=== PATIENT | female | born 1990 | race Caucasian/White ===

== ENCOUNTER → 2016-09-10 15:34 | Observation (INO) ==
--- NOTE | 2016-09-10 15:31 | OB/GYN Progress Note ---
Date of Encounter: 09/10/16 Time of Encounter: 15:29 - Assessment and Plan (1) 39 weeks gestation of Current Visit: Yes Status: Acute (2) False labor Current Visit: Yes Status: Acute SVE 380/-2 x 2 exams. No bleeding noted on exam. Discharge home with precautions. Subjective - Subjective Interval history: 26 year-old presenting at 39w1d with c/o spotting. She reports having some spotting with wiping today. She had an SVE in the office 2 days ago. She also reports some light cramping but no significant pain or contractions. No LOF or heavy VB. Good FM. Objective - Vital Signs Vital Signs: Intake and Output 09/09/16 09/10/16 09/10/16 23:59 07:59 15:59 Other: Weight 93 kg Patient Weight 09/10/16 23:59 Weight 93 kg - Exam FHR: category 1 FHR comments: NST reactive Abdomen: Present: soft, gravid Cervical dilation: 3 Cervix effacement: 80 station: -2 per nursing staff
== END | disposition home or self-care (01) ==
LOC: 1NENULAB
PROVIDERS: ADMIT Student in an Organized Health Care Education/Training Program; ATTEND Student in an Organized Health Care Education/Training Program

== ENCOUNTER 2016-09-10 22:18 | Inpatient (IN) ==
[~2016-09-10 22:18] MED LIST: Famotidine 20 MG/2 ML VIAL IVP PRN; Metoclopramide 10 MG/2 ML VIAL IVP PRN
[2016-09-10 22:55] LABS: Basophils % 0.3 %; Eosinophils % 0.4 %; Hematocrit 40.2 % (35.3-44.9); Hemoglobin 13.9 g/dL (11.5-15.4); Immature Granulocytes % 0.7 % (0-4); Lymphocytes % 18.5 %; Mean Corpuscular HGB Conc 34.6 g/dL (31.6-35.5); Mean Corpuscular Hemoglobin 30.8 pg (28.0-33.3); Mean Corpuscular Volume 89.1 fL (83.0-100.0); Mean Platelet Volume 9.5 fL (9.4-12.4); Monocytes # 0.7 K/mcL (0.0-1.3); Monocytes % 6.6 %; Neutrophils # 8.1 K/mcL (1.6-8.9); Platelet Count 306 K/mcL (140-400); Red Blood Count 4.51 M/mcL (3.82-4.97); Red Cell Distribution Width 12.4 % (11.5-14.5); Segmented Neutrophils % 73.5 %
--- NOTE | 2016-09-10 23:59 | OB/GYN History & Physical ---
Date of Encounter: 09/11/16 Time of Encounter: 23:42 Assessment and Plan (1) Spontaneous rupture of amniotic membranes Current visit: Yes Status: Acute Admit for expectant management. Allow pt to ambulate and sit on ball. Will augment after 6 hours if needed. Epidural when requested. Anticipate . (2) 39 weeks gestation of Current visit: No Status: Acute History of Present Illness Chief complaint: leaking fluid HPI: Ms. Li is a 26 year old female presenting at 39w1d for leaking fluid. She reports a large gush of clear fluid at 2100 this evening. She has been having some mild contractions every 4-6 minutes and some spotting today also. Good FM. No other complaints. This has been uncomplicated. Blood type O positive. Rubella immune. Serologies and GBS negative. Past Med Surg Social Fam HX - Past Medical History Medical history: no medical history, venous stasis Psychiatric history: no psych history - Past Surgical History Surgical History: other - Social History Smoking Status: Never smoker Smokeless Tobacco Status: No Alcohol use: none Drug use: none - Family History Mother Age: 52 Living Status: Still Living Hx Family Cardiac Disorders: Yes (high chol) Obstetrical History - Pregnancies : 1 Medications and Allergies One Tablet 1 tab PO DAILY 09/10/16 [History] Allergies No Known Allergies Allergy (Verified 12/25/15 07:10) Review of System OB All systems PM: reviewed and no additional remarkable complaints except as stated Exam - Vital Signs Vital signs: Initial Vital Signs Pulse Resp BP 83 16 131/78 09/10/16 22:05 09/10/16 22:05 09/10/16 22:05 - Constitutional Constitutional: well developed, well nourished, no acute distress - HEENT HEENT: Normocephaly - Lungs Respiratory exam: CTAB - Cardiovascular Cardiovascular exam: RRR, +S1, +S2 - Abdomen Abdomen: Present: gravid, non tender - Extremities Extremities exam: normal inspection (2+ edema bilaterally), pedal edema - Vulva Vulva: bilateral: normal - Vagina Vagina: Present: normal moisture - Cervix Dilation: 3 Effacement: 80 - Anus/Rectum Anus/Rectum: Present: normal perianal skin Results Result Diagrams: 09/10/16 22:45 All other labs normal. - VTE Reasons for not Prescribing Prophylaxis: Treatment not Indicated - Low risk for VTE
[2016-09-11] MEDS ORDERED: *HR* Nalbuphine 20 MG/ML AMPUL ONE (00:54)
[2016-09-11] MEDS: Ringers Solution, Lactated 1,000 ML IVC SCH ×2 (01:04→02:36)
[2016-09-11] MEDS ORDERED: *HR* Nalbuphine 20 MG/ML AMPUL IVP PRN (01:43)
[2016-09-11] MEDS ORDERED: Ringers Solution, Lactated 500 ML IVC ONE (01:47)
[2016-09-11] MEDS ORDERED: EPHEDrine 50 MG/ML VIAL IVP PRN (01:47)
[2016-09-11] MEDS ORDERED: Epidural Premix (fent/bupiv) 110 ML EP ONE ×3 (01:51→13:37)
[2016-09-11] MEDS ORDERED: Epidural Premix (fent/bupiv) 110 ML EP SCH (02:00)
--- NOTE | 2016-09-11 02:29 | Anesthesia Evaluation PreOp ---
Date of Encounter: 09/11/16 Time of Encounter: 02:28 - Past History Planned Operation: [facility] Cardiac History: Denies any Significant Hx Pulmonary History: Denies Any Significant HX TICKET WORKER History: Denies Any Significant HX Other Medical History: Denies Any Significant HX Anesthesia History: No Prior Anesthetic Complications Alcohol Use: none Drug use: none Medications and Allergies One Tablet 1 tab PO DAILY 09/10/16 [History] Allergies No Known Allergies Allergy (Verified 12/25/15 07:10) - Meds/Allergy Pre-op Review Medications Reviewed: Yes Allergies Reviewed: Yes Beta Blockers on Current Med List: No Anesthesia Results - Labs 09/10/16 22:45 Anesthesia Exam Height: 1.7m Weight: 93kg NPO (# of Hours): 6 Pain Scale: 10 Pain Scale Used: Numeric (1 - 10) - HEENT Pupil (Motor): Pupils equal Mallampati: II Teeth: Normal Oral Opening: Greater than 3 - TICKET WORKER LOC: Oriented TICKET WORKER Motor: Normal RUE, Normal LUE, Normal RLE, Normal LLE, Normal Face TICKET WORKER Sensory: Normal: RUE, LUE, RLE, LLE, Face - Cardiac Rhythm: Regular Murmur: None JVD: No Carotid Bruit: No - Pulmonary Breath Sounds: bilateral Clear Respiratory Effort: Symmetrical Anesthesia Assess/Plan ASA Score: 2 Modified Silvestre Scale for Level of Consciousness: Cooperative, oriented, and tranquil Anesthetic Plan: General (plan b), Regional (plan a) Autologous Blood: Yes Monitoring Plan: Standard Monitors
--- NOTE | 2016-09-11 02:31 | Anesthesia Procedures ---
Date of Encounter: 09/11/16 Time of Encounter: 02:29 Procedures: Anesthesia - Epidural/Spinal Patient ID/Chart reviewed: Yes Patient examined: Yes OB Eval: Gestational age: 39.1 OB Eval: : 1 OB Eval: Hx Para: 0 OB Eval: Dilated at (cm): 5 OB Eval: Contractions: Non-stressed pattern Consent Obtained: Yes Supplemental Oxygen: None/Room Air Site Prep: Aseptic Technique, Sterile prep and drape, Povidone-Iodine 1% Patient position: upright Local Anesthetic: Lidocaine 1% Amount of Local Anesthetic used: 3 Touhy Needle Gauge: 18 Touhy Needle Depth (cm): 8 Catheter Depth at Skin (cm): 15 Test Dose (1.5% Lido + Epi): Volume given (mls): 5 Test Dose Result: Negative Loading Dose: Other: 10mls of epidural pharm bag premix solution Loading Dose Administered: Thru Catheter Infusion Med: 0.125% Bupivacaine w/ 2 mcg/ml Fentanyl Infusion Rate (mls/hr): 16 ([id number]) Catheter Secured in Place: Tegaderm, Tape Interspace Used: L3-L4 Loss of Resistance (NEW): Yes Blood: No CSF: No Paresthesia: No Procedure: pt tolerated procedure well. no complications. vss. fhr stable. 127/75 hr 63 138/79 hr 72 fhr 125
--- NOTE | 2016-09-11 06:00 | OB Labor Progress Note ---
Date of Encounter: 09/11/16 Time of Encounter: 05:58 Labor Progress Note - Subjective Subjective: Pt comfortable with epidural - Cervix Cervix: 8-9cm per RN - Heart Tones Heart Tones: periodic variable decelerations noted, moderate variability - Lead Lead: 4-5 minutes - Interventions Interventions: Pt repositioned multiple times per nursing staff, IV fluid bolusing, oxygen in place - Plan Plan: Continue to monitor. Anticipate .
[2016-09-11] MEDS ORDERED: Ondansetron 4 MG/2 ML VIAL IVP PRN (06:43)
--- NOTE | 2016-09-11 09:35 | OB Labor Progress Note ---
Date of Encounter: 09/11/16 Time of Encounter: 09:31 Labor Progress Note - Subjective Subjective: Pt resting in bed. comfortable with epidural - Cervix Cervix: Ant. lip per RN - Heart Tones Heart Tones: Baseline 140/moderate variability/-accels/variables, late decelerations present at times. Tracing improved when turned to right side. - [place]: 2-4 - Interventions Interventions: Tracing improved with repositioning. - Plan Plan: Continue current management plan Dr. Chang updated and introduced to patient Anticipate
[2016-09-11] MEDS ORDERED: Acetaminophen 325 MG TABLET PO ONE ×2 (10:08→13:53)
[2016-09-11] MEDS ORDERED: Oxytocin 20 units/ LR 1000 mL 20 UNIT/1,000 ML BAG IVC SCH ×2 (13:15→20:30)
--- NOTE | 2016-09-11 14:26 | OB Labor Progress Note ---
Date of Encounter: 09/11/16 Time of Encounter: 12:30 Labor Progress Note - Subjective Subjective: Pt states feeling some rectal pressure. but otherwise comfortable - Cervix Cervix: 9.5/ +1 station - Heart Tones Heart Tones: 135/moderate/+accels/variables and early decels, - [place]: q2-4 - Interventions Interventions: Start pitocin per policy Dr. kenny updated anticipate
--- NOTE | 2016-09-11 18:22 | OB/GYN Procedure Note ---
Delivery - Delivery Provider: Mirian Farah Intrapartum events: meconium, polyhydramnios Delivery induction: none Delivery augmentation: pitocin Delivery monitor: external FHT, external uterine Anesthesia: epidural Estimated Blood Loss: 600 - (s) Infant A Infant Delivery Date: 09/11/16 Infant Delivery Time: 15:06 Presentation: vertex Position: OA Route of delivery: Gender: Male Viability: Viable Pounds: 7 Ounces: 9 Weight Gram: 3.435 kg at 1 minute: 8 at 5 mins: 9 Shoulder Dystocia: not encountered Cord: nuchal cord - Repair Laceration Description: Perineal - 3rd Degree, Vaginal - Complications Delivery complications: meconium - Disposition Mom disposition: stable in LDR disposition: stable in LDR - Comments Comments: Progressed to complete. Directed maternal bearing down efforts to of liveborn boy. Vertex delivered, nuchal x1, infant delivered through cord, shoulders and body easily followed, thick and terminal meconium noted. infant placed on maternal abdomen stimulated to spontaneous cry, APGARS 8/9no shoulder dystocia encountered. Third degree perineal laceration, right vaginal side wall and left side perineal second degree repaired by Dr. Chang. Placenta delivered spontaneously, intact on inspection, pitocin per policy. fundus firm EBL 600. Mother and infant left skin to skin.
[2016-09-11] MEDS ORDERED: Benzocaine/Menthol 56 GM AEROSOL SPRAY TP PRN (20:30)
[2016-09-11] MEDS ORDERED: Acetaminophen 325 MG TABLET PO PRN (20:30)
[2016-09-11] MEDS ORDERED: Lanolin 7 G OINT...G. TP PRN (20:30)
[2016-09-11] MEDS: Ibuprofen 600 MG TABLET PO PRN (21:16)
[2016-09-12] MEDS: Ibuprofen 600 MG TABLET PO PRN ×3 (02:45→16:47)
[2016-09-12 06:03] LABS: Basophils % 0.1 %; Eosinophils % 0.3 %; Hematocrit 23.5 % (35.3-44.9); Immature Granulocytes % 0.7 % (0-4); Lymphocytes # 1.5 K/mcL (0.6-4.6); Lymphocytes % 11.4 %; Mean Corpuscular HGB Conc 34.5 g/dL (31.6-35.5); Mean Corpuscular Hemoglobin 31.6 pg (28.0-33.3); Mean Corpuscular Volume 91.8 fL (83.0-100.0); Mean Platelet Volume 10.2 fL (9.4-12.4); Monocytes # 0.9 K/mcL (0.0-1.3); Monocytes % 6.5 %; Neutrophils # 10.9 K/mcL (1.6-8.9); Platelet Count 189 K/mcL (140-400); Red Blood Count 2.56 M/mcL (3.82-4.97); Red Cell Distribution Width 12.7 % (11.5-14.5)
[2016-09-12 06:07] LABS: Hemoglobin 8.1 g/dL (11.5-15.4)
[2016-09-12] MEDS: Prenatal Vit/FA 1 EACH TABLET PO SCH (08:09)
--- NOTE | 2016-09-12 10:03 | OB/GYN Progress Note ---
Date of Encounter: 09/12/16 Time of Encounter: 10:01 - Assessment and Plan (1) Status post vaginal delivery Current Visit: Yes Status: Acute patient doing very well PPD#1, cont current inpt care, aim for discharge tomorrrow Subjective - Subjective Patient reports: appetite normal, voiding normally, pain well controlled, ambulating normally : doing well, nursing well Objective - Latest Vital Signs Latest vital signs: Vital Signs Temp Pulse Resp BP Pulse Ox 09/12/16 07:30 98.6 F 108 16 130/72 09/12/16 02:40 98.4 F 83 20 103/68 97 09/11/16 22:30 98.6 F 101 20 122/83 98 09/11/16 21:45 99.3 F 105 20 122/81 99 09/11/16 20:30 98.2 F 99 14 114/77 100 Intake and Output 09/11/16 09/12/16 09/12/16 23:59 07:59 15:59 Intake Total 300 / 300 1700 / 1700 360 / 360 Output Total 400 / 400 1700 / 1700 Balance -100 / -100 0 / 0 360 / 360 Intake: Oral 300 / 300 700 / 700 360 / 360 Other 1000 / 1000 Output: Urine 400 / 400 1700 / 1700 Other: Meal Breakfast Percent of Meal Consumed 90% Weight 94 kg 93.9 kg Patient Weight 09/12/16 23:59 Weight 93.9 kg - Exam Lungs: bilateral: normal Chest: Normal S1, Normal S2 Extremities: Present: normal Abdomen: Present: normal appearance Uterus: Present: normal - Labs Labs: Laboratory Results - last 24 hr 09/12/16 05:33 WBC 13.5 H RBC 2.56 L Hgb 8.1 L D Hct 23.5 L MCV 91.8 MCH 31.6 MCHC 34.5 RDW 12.7 Plt Count 189 MPV 10.2 Immature Gran % 0.7 Seg Neutrophils % 81.0 Lymphocytes % 11.4 Monocytes % 6.5 Eosinophils % 0.3 Basophils % 0.1 Neutrophils # 10.9 H Lymphocytes # 1.5 Monocytes # 0.9 Eosinophils # 0.0 Basophils # 0.0
[2016-09-12] MEDS: *HR* HYDROcodone/Acet 5/325 mg TABLET PO PRN ×2 (12:55→23:06)
[2016-09-13] MEDS: Ibuprofen 600 MG TABLET PO PRN ×2 (06:14→13:46)
[2016-09-13] MEDS: *HR* HYDROcodone/Acet 5/325 mg TABLET PO PRN (06:15)
[2016-09-13 08:38] VITALS: BP 102/65
[2016-09-13] MEDS: Prenatal Vit/FA 1 EACH TABLET PO SCH (09:18)
--- NOTE | 2016-09-13 09:18 | Discharge Summary ---
Date of Encounter: 09/13/16 Time of Encounter: 09:16 - Discharge Diagnosis (1) Status post vaginal delivery Priority: Primary Status: Acute Comments: Doing well and meeting milestones (2) Anemia, Priority: Secondary Status: Acute Comments: Iron supplementation - Discharge Medications Prescriptions: HYDROcodone/Acet 5/325 mg [Wake 5-325 mg] 1 tab PO Q4HR PRN #30 tablet PRN Reason: Moderate Pain Ibuprofen [Motrin] 600 mg PO Q6HR PRN #30 tablet PRN Reason: Cramping Ferrous Sulfate 325 mg PO BIDWM #60 tablet Home Medications: One Tablet 1 tab PO DAILY 09/10/16 [History] Ferrous Sulfate 325 mg PO BIDWM #60 tablet 09/13/16 [Rx] HYDROcodone/Acet 5/325 mg [Wake 5-325 mg] 1 tab PO Q4HR PRN #30 tablet [Rx] Ibuprofen [Motrin] 600 mg PO Q6HR PRN #30 tablet 09/13/16 [Rx] Allergies/Adverse Reactions: Allergies No Known Allergies Allergy (Verified 12/25/15 07:10) Data Procedures and tests throughout hospitalization: Laboratory Tests 09/10/16 09/12/16 22:45 05:33 WBC 11.0 13.5 H RBC 4.51 2.56 L Hgb 13.9 8.1 L D Hct 40.2 23.5 L MCV 89.1 91.8 MCH 30.8 31.6 MCHC 34.6 34.5 RDW 12.4 12.7 Plt Count 306 189 MPV 9.5 10.2 Immature Gran % 0.7 0.7 Seg Neutrophils % 73.5 81.0 Lymphocytes % 18.5 11.4 Monocytes % 6.6 6.5 Eosinophils % 0.4 0.3 Basophils % 0.3 0.1 Neutrophils # 8.1 10.9 H Lymphocytes # 2.0 1.5 Monocytes # 0.7 0.9 Eosinophils # 0.0 0.0 Basophils # 0.0 0.0 Date of admission: 09/10/16 22:18 Consults: 09/11/16 20:30 Consult to Mathematics Technician [CONS] Routine Comment: Vaginal delivery, consult needed Discharging clinician: Leanne Chang Anticipated date of discharge: 09/13/16 - Patient Status Disposition: Home, Self-Care Condition: Good Functional capacity at discharge: independent ambulation Overall status at discharge: patient is progressing back to baseline - Discharge Instructions Follow Up With: Bere Lyons DO [Partnered Physician] - - Diet and Activity Activity: increase activity as tolerated, resume usual activities as tolerated Diet: regular diet Hospital Course Procedures: Reason for admission: IUP at term Delivery: Episiotomy: none Laceration: vaginal side wall, 3rd degree Other procedures: none complications: none Discharge diagnosis: IUP at term delivered baby: male Hospital course: The patient is doing well on day 2. She is anemic after a significant left vaginal wall sulcus tear that was repaired following delivery. She reports light lochia and occasional small clots. She has good pain control. Baby is doing well. She is stable for discharge Time Attestation: Total time spent providing and/or coordinating discharge services: Time Spent: Less than 30 minutes Specific discharge activities: Pelvic Rest Exam - Constitutional Vitals: Temp Pulse Resp BP Pulse Ox 98.3 F 96 16 102/65 100 09/13/16 07:45 09/13/16 07:45 09/13/16 07:45 09/13/16 07:45 09/12/16 19:35 General appearance IM: A&O X 3, pleasant, no acute distress, answers questions appropriately - Respiratory Respiratory exam: Present: CTAB. Absent: respiratory distress - Cardiovascular Cardiovascular exam IM: Present: RRR. Absent: irregular rhythm - GI/Abdominal GI/Abdominal exam IM: normal bowel sounds, soft, no peritoneal signs - Rectal Rectal exam: deferred - Uterine Tone: Firm Uterus Position: 2 Fingers Below Umbilicus - Extremities Exam Extremities exam IM: Present: pedal edema, warm (Superficial numbness anteriolateral right thigh). Absent: calf tenderness - Neurological Exam Neurological exam: no focal deficits
--- NOTE | 2016-09-13 10:45 | Anesthesia Progress Note ---
Date of Encounter: 09/13/16 Time of Encounter: 10:09 Anesthesia Note - Note Note: 09/13/16 10:[address] Chang for patient c/o numbness to thigh post delivery. Patient states she has numbness on the right side from the mid-anterior to lateral thigh from just above the knee to just below the hip that she noticed once the analgesic effects of the epidural wore off post delivery. She has been up to the bathroom several times and denies any motor weakness previously or at this time. She also describes a venous insufficiency on the right lower extemity for which she has seen Dr Brice during her . According to the patient she is again scheduled with Dr Brice for an in-office procedure for treatment of the venous insufficiency in mid October. She denies any numbness/tingling/pain elsewhere, and denies any motor weakness at this time. Upon physical examination it is noted that patient has numbness to pin prick test in the distribution of the lateral femoral cutaneous nerve, which is derived from L2-3. Motor function is normal and equal in bilateral lower extremities as determined by quadracep and calf extension against resistance. Patellar reflexes are also normal. There is, however, marked edema in the right lower extremity as compared to the right. Considering the typical rapid weight gain during along with the marked edema that was attributed to venous insufficiency by Dr Brice, compounded by the current level of edema in the right lower extremity from fluid shift plus the physical stress of childbirth while in stirrups, the most likely cause of numbness along this distribution is attributed to compression of lateral femoral cutaneous nerve, or Meralgia Parasthetica. After sharing physical findings with Dr Chang the patient was advised that the numbness should improve over the next several days. The patient was also told to contact her primary care physician if the numbness doesn't completely resolve, or worsens, over the next two weeks.
== END 2016-09-13 16:00 | disposition home or self-care (01) | DRG 775 ==
LOC: 1NENULAB → 1NENUOBS 09-11 20:28
PROVIDERS: ADMIT Student in an Organized Health Care Education/Training Program; ATTEND Student in an Organized Health Care Education/Training Program

== ENCOUNTER → 2021-10-22 19:10 | Observation (INO) | END | disposition home or self-care (01) | LOC: 1NENULAB | PROVIDERS: ADMIT Advanced Practice Midwife; ATTEND Advanced Practice Midwife ==

== ENCOUNTER 2021-10-23 06:03 | Inpatient (IN) ==
[2021-10-23] MEDS ORDERED: Metoclopramide 10 MG/2 ML VIAL IVP PRN (06:16)
[2021-10-23] MEDS ORDERED: Naloxone 0.4 MG/ML INJ IVP PRN (06:16)
[2021-10-23] MEDS ORDERED: *HR* Nalbuphine 10 MG/ML AMPUL IV PRN (06:16)
[2021-10-23] MEDS ORDERED: Azithromycin 500 MG in 0.9 % Sodium Chloride 250 ML IVPB PRN (06:16)
[2021-10-23] MEDS ORDERED: Lidocaine 1% 20 ML MDV ID PRN (06:16)
[2021-10-23] MEDS ORDERED: Famotidine 20 MG/2 ML VIAL IVP PRN (06:16)
[2021-10-23] MEDS ORDERED: Ondansetron 4 MG/2 ML VIAL IVP PRN (06:16)
[2021-10-23] MEDS ORDERED: miSOPROStoL 25 MCG TABLET PO PRN (06:16)
[2021-10-23] MEDS ORDERED: *HR* FentaNYL (PF) 100 MCG/2 ML VIAL IVP PRN (06:16)
[2021-10-23] MEDS ORDERED: Oxytocin 30 UNIT/503 ML BAG IVC SCH (07:00)
[2021-10-23 07:06] LABS: Basophils % 0.3 %; Eosinophils # 0.1 K/mcL (0.0-0.6); Eosinophils % 1.2 %; Hematocrit 40.2 % (35.3-44.9); Hemoglobin 13.7 g/dL (11.5-15.4); Immature Granulocytes % 0.6 % (0-4); Lymphocytes # 1.4 K/mcL (0.6-4.6); Lymphocytes % 15.9 %; Mean Corpuscular HGB Conc 34.1 g/dL (31.6-35.5); Mean Corpuscular Hemoglobin 30.9 pg (28.0-33.3); Mean Corpuscular Volume 90.5 fL (83.0-100.0); Mean Platelet Volume 9.7 fL (9.4-12.4); Monocytes # 0.7 K/mcL (0.0-1.3); Neutrophils # 6.5 K/mcL (1.6-8.9); Platelet Count 263 K/mcL (140-400); Red Blood Count 4.44 M/mcL (3.82-4.97); Red Cell Distribution Width 13.1 % (11.5-14.5); White Blood Count 8.9 K/mcL (4.3-11.1)
[2021-10-23] MEDS: Ringers Solution, Lactated 1,000 ML IVC SCH ×2 (07:30→11:10)
[2021-10-23] MEDS ORDERED: EPHEDrine 50 MG/ML VIAL IVP PRN (08:02)
[2021-10-23] MEDS ORDERED: Epidural Premix (fent/bupiv) 110 ML EP SCH (08:15)
[2021-10-23 09:03] LABS: Amphetamine Screen,Urine Negative ng/mL (Cutoff=1000); Barbiturate Screen,Urine Negative ng/mL (Cutoff=200); Benzodiazepines Screen,Urine Negative ng/mL (Cutoff=200); Cannabinoid Screen,Urine Negative ng/mL (Cutoff = 50); Cocaine Screen,Urine Negative ng/mL (Cutoff= 300); Opiate Screen,Urine Negative ng/mL (Cutoff=300); Phencyclidine Screen,Urine Negative ng/mL (Cutoff=25)
[2021-10-23] MEDS ORDERED: *HR* FentaNYL (PF) 100 MCG/2 ML VIAL ONE (10:35)
[2021-10-23] MEDS ORDERED: Ropivacaine/PF 0.2% 20 ML VIAL ONE (10:35)
[2021-10-23] MEDS ORDERED: miSOPROStoL 100 MCG TABLET RC STA (14:31)
[2021-10-23] MEDS ORDERED: Methylergonovine 0.2 MG/ML AMPUL IM ONE (14:33)
[2021-10-23] MEDS ORDERED: Ibuprofen 600 MG TABLET PO ONE (14:57)
[2021-10-23] MEDS ORDERED: Lanolin 7 G OINT...G. TP PRN ×2 (14:59→20:06)
[2021-10-23] MEDS ORDERED: Ondansetron ODT 4 MG TAB.RAPDIS SL PRN ×2 (14:59→20:06)
[2021-10-23] MEDS ORDERED: Benzocaine/Menthol 56 GM AEROSOL SPRAY TP PRN ×2 (14:59→20:06)
[2021-10-23] MEDS ORDERED: OXYTOCIN/RINGERS LACTATE 10 UNIT/166.6 ML BAG IVC ONE ×2 (14:59→20:06)
[2021-10-23] MEDS ORDERED: *HR* OxyCODONE Immed Rel 5 MG TABLET PO PRN (14:59)
[2021-10-23] MEDS ORDERED: Acetaminophen 325 MG TABLET PO SCH (15:00)
[2021-10-23] MEDS ORDERED: Ibuprofen 600 MG TABLET PO SCH (17:59)
[2021-10-23] MEDS: Acetaminophen 325 MG TABLET PO SCH (20:34)
[2021-10-23 22:12] LABS: Basophils % 0.2 %; Eosinophils % 0.1 %; Hematocrit 31.4 % (35.3-44.9); Immature Granulocytes % 0.4 % (0-4); Lymphocytes # 1.1 K/mcL (0.6-4.6); Mean Corpuscular HGB Conc 34.4 g/dL (31.6-35.5); Mean Corpuscular Hemoglobin 31.4 pg (28.0-33.3); Mean Corpuscular Volume 91.3 fL (83.0-100.0); Mean Platelet Volume 9.7 fL (9.4-12.4); Monocytes # 0.6 K/mcL (0.0-1.3); Monocytes % 4.6 %; Neutrophils # 10.9 K/mcL (1.6-8.9); Platelet Count 213 K/mcL (140-400); Red Blood Count 3.44 M/mcL (3.82-4.97); Segmented Neutrophils % 85.7 %; White Blood Count 12.7 K/mcL (4.3-11.1)
[2021-10-23 22:16] LABS: Hemoglobin 10.8 g/dL (11.5-15.4)
[2021-10-23] MEDS: Ibuprofen 600 MG TABLET PO SCH (22:50)
[2021-10-24] MEDS: Acetaminophen 325 MG TABLET PO SCH (04:24)
[2021-10-24] MEDS: *HR* OxyCODONE Immed Rel 5 MG TABLET PO PRN ×2 (04:25→12:05)
[2021-10-24 04:33] VITALS: O2SAT 98
[2021-10-24 05:07] LABS: Basophils % 0.3 %; Eosinophils # 0.1 K/mcL (0.0-0.6); Eosinophils % 0.7 %; Hematocrit 32.3 % (35.3-44.9); Hemoglobin 10.8 g/dL (11.5-15.4); Immature Granulocytes % 0.7 % (0-4); Lymphocytes # 1.6 K/mcL (0.6-4.6); Mean Corpuscular HGB Conc 33.4 g/dL (31.6-35.5); Mean Corpuscular Hemoglobin 30.8 pg (28.0-33.3); Mean Platelet Volume 9.6 fL (9.4-12.4); Monocytes % 8.4 %; Neutrophils # 8.8 K/mcL (1.6-8.9); Platelet Count 251 K/mcL (140-400); Red Blood Count 3.51 M/mcL (3.82-4.97); Red Cell Distribution Width 13.2 % (11.5-14.5); Segmented Neutrophils % 75.9 %; White Blood Count 11.6 K/mcL (4.3-11.1)
[2021-10-24 06:58] VITALS: BP 108/74; PULSE 80; TEMP 97.7
[2021-10-24] MEDS ORDERED: Aspirin 81 MG TAB.CHEW PO SCH (09:00)
[2021-10-24] MEDS ORDERED: Prenatal Vit/FA 1 EACH TABLET PO SCH ×2 (09:00)
[2021-10-24] MEDS: Ibuprofen 600 MG TABLET PO SCH (09:29)
== END 2021-10-24 15:55 | disposition home or self-care (01) | DRG 806 ==
LOC: 1NENULAB 06:03 → 1NENUOBS 18:53
PROVIDERS: ADMIT Advanced Practice Midwife; ATTEND Advanced Practice Midwife